=== PATIENT | female | born 1945 | race Caucasian/White ===

== ENCOUNTER 2022-01-19 13:22 | Emergency (ER) | payer MEDICARE ==
[~2022-01-19] VITALS: Ht 167.6 cm; Wt 61.2 kg
[~2022-01-19 13:22] MED LIST: HYDR1TAB94 PO; Multivitamin1 EAC1 PO; OMEGA 3 FISH OIL; SELENIUM; TYLENOL PM; VITAMIN D
[2022-01-19] MEDS ORDERED: MONDOXYNE NL100 MG PO (13:34)
== END 2022-01-19 13:45 | disposition home or self-care (01) ==
LOC: ER 13:22
DX: L03.116 Cellulitis of left lower limb (principal); Z79.899 Other long term (current) drug therapy
CPT/HCPCS: 99281